=== PATIENT | female | born 1990 | race Hispanic/Latino ===

== ENCOUNTER → 2019-10-25 | Outpatient (CLI) | payer OTHER ==
--- NOTE | 2019-10-25 12:06 | Diagnostic Imaging Report ---
TECHNIQUE: Magnetic resonance imaging of the RIGHT KNEE was performed WITHOUT injected contrast. HISTORY: Right knee pain COMPARISON: None available. FINDINGS: LIGAMENTS AND TENDONS: ACL: Complete anterior cruciate ligament tear with pivot shift contusion. PCL: Intact Collateral ligaments: Partial medial collateral ligament tear. Iliotibial band: Unremarkable Popliteal tendon: Intact Extensor mechanism: Intact JOINT: Menisci: Medial: Intact Lateral: Intact Articular Cartilage: Medial Compartment: No focal defect. Lateral Compartment: No focal defect. Patellofemoral Compartment: No focal defect. Joint Fluid: The amount of fluid within the joint is within physiologic limits. BONE: No focal or infiltrative bone marrow replacing abnormality. No acute fracture. SOFT TISSUES: Otherwise, unremarkable. IMPRESSION: Anterior cruciate ligament complete tear Medial collateral ligament partial tear Signed by: Dr. Jose Bingham M.D. on 10/25/2019 12:03 PM
== END ==
LOC: MRI 10:26
PROVIDERS: ATTEND Specialist
DX: M23.91 Unspecified internal derangement of right knee (principal)

== ENCOUNTER → 2019-12-04 | Outpatient (RCR) | payer OTHER | LOC: PT 11-07 15:35 | PROVIDERS: ATTEND Specialist | DX: S83.411D Sprain of medial collateral ligament of right knee, subsequent encounter (principal); S83.511D Sprain of anterior cruciate ligament of right knee, subsequent encounter ==

== ENCOUNTER 2019-12-29 12:55 | Outpatient (RCR) | payer OTHER | END 2020-01-03 | LOC: PT 12:55 | PROVIDERS: ATTEND Specialist | DX: S83.411D Sprain of medial collateral ligament of right knee, subsequent encounter (principal); S83.511D Sprain of anterior cruciate ligament of right knee, subsequent encounter ==

== ENCOUNTER 2020-01-18 13:00 | Outpatient (RCR) | payer OTHER | END 2020-02-03 | LOC: PT 13:00 | PROVIDERS: ATTEND Specialist | DX: S83.411D Sprain of medial collateral ligament of right knee, subsequent encounter (principal); S83.511D Sprain of anterior cruciate ligament of right knee, subsequent encounter; M25.661 Stiffness of right knee, not elsewhere classified; M62.81 Muscle weakness (generalized); M25.561 Pain in right knee; R26.2 Difficulty in walking, not elsewhere classified ==